=== PATIENT | female | born 1970 | race Caucasian/White ===

== ENCOUNTER 2024-01-12 18:19 | Emergency (ER) | payer OTHER ==
[2024-01-12 18:53] LABS: HEMATOCRIT 42.5 % (32.4-45.2); HEMOGLOBIN 14.2 G/dL (10.7-15.3); MCH 29.7 pg (25.7-33.7); MCHC 33.5 g/dl (32.0-36.0); MEAN CELL VOLUME 88.8 fl (80-96); MEAN PLT VOLUME 8.3 fl (7.5-11.1); PLATELET COUNT 211.9 10^3/uL (134-434); RBC 4.79 10^6/uL (3.60-5.2); WHITE BLOOD COUNT 7.1 10^3/uL (4.0-10.8)
[2024-01-12 18:58] VITALS: BP 139/92; PULSE 102; RESP 18; TEMP 101.4; BMI 35.4
[2024-01-12 19:14] LABS: ALBUMIN 4.7 g/dl (3.4-5.0); BILIRUBIN,TOTAL 1.5 mg/dl (0.2-1); CREATININE 0.8 mg/dl (0.6-1.3); MAGNESIUM 1.9 mg/dL (1.8-2.4); POTASSIUM 3.6 mmol/L (3.5-5.1)
[2024-01-12] MEDS ORDERED: ONDANSETRON 4 MG/2 ML VIAL ONE (19:25)
[2024-01-12] MEDS ORDERED: ACETAMINOPHEN INJECTION 100 ML IVPB ONE (19:26)
[2024-01-12] MEDS: SODIUM CHLORIDE 1,000 ML IV ONE (19:28)
[2024-01-12] MEDS: ONDANSETRON 4 MG/2 ML VIAL IVPB ONE (19:30)
[2024-01-12] MEDS: ACETAMINOPHEN 1000 MG/100 ML BAG IVPB ONE (19:37)
== END 2024-01-12 21:00 | disposition home or self-care (01) ==
LOC: FER 18:19
PROC: 3E033NZ Introduction of Analgesics, Hypnotics, Sedatives into Peripheral Vein, Percutaneous Approach (ICD-10-PCS; principal; 2024-01-12)
PROC: 3E033GC Introduction of Other Therapeutic Substance into Peripheral Vein, Percutaneous Approach (ICD-10-PCS; 2024-01-12)
PROC: 3E0337Z Introduction of Electrolytic and Water Balance Substance into Peripheral Vein, Percutaneous Approach (ICD-10-PCS; 2024-01-12)
DX: U07.1 COVID-19 (principal); R07.89 Other chest pain; R06.02 Shortness of breath; R11.0 Nausea; M79.10 Myalgia, unspecified site
CPT/HCPCS: 0241U-QW; 36415; 71045-TC-FY; 80053; 83735; 84484; 85027; 93005; 99285-25; J0131